=== PATIENT | female | born 2000 | race Hispanic/Latino ===

== ENCOUNTER 2023-11-10 19:04 | Emergency (ER) | payer OTHER, SELFPAY ==
[2023-11-10 19:16] VITALS: BP 122/70; PULSE 90; RESP 18; TEMP 36.4; O2SAT 99
--- NOTE | 2023-11-10 19:20 | ED.EAR ---
HPI - Ear Problem General Chief complaint: Ear Stated complaint: EAR PAIN Time Seen by Provider: 11/10/23 19:21 Source: patient, RN notes reviewed and old records reviewed Mode of arrival: ambulatory Limitations: no limitations History of Present Illness HPI Narrative: 23year old female who presents to [facility] with complaints of intermittent history for 2 weeks of right ear discomfort. Patient reports her right ear feels clogged. She denies any drainage from her ears or any spray throat fevers cough or decreased hearing. Patient reports no sinus congestion or drainage, no fevers, coughs, or any body aches MD Complaint: ear pain Location: right ear Duration: intermittent Severity: mild Discharge from ear: Reports no Treatment prior to arrival: none Related Data Allergies Allergy/AdvReac Type Severity Reaction Status Date / Time No Known Allergies Allergy Unknown Uncoded 11/10/23 19:20 Review of Systems Review of Systems: CONSTITUTIONAL: Denies malaise, chills, sweats, or fever. EYES: Denies visual changes, redness, or discharge. ENT: Reports rhinorrhea, congestion, sinus pain,positive for right otalgia and no sore throat. CARDIOVASCULAR: Denies chest pain, palpitations, or edema. RESPIRATORY: Reports no cough.? Denies dyspnea. GASTROINTESTINAL: Denies abdominal pain, nausea, vomiting, diarrhea SKIN: Denies rash or itching. MUSCULOSKELETAL: Denies myalgia. NEUROLOGIC: Denies headache. All systems reviewed & are unremarkable except as noted in HPI and below PMFSH Past Medical History Medical History (Updated 11/10/23 @ 20:12 by Janey Francois NP) Back pain Costochondritis Social History Social History (Updated 11/10/23 @ 19:37 by Janey Francois NP) Smoking status: Never smoker Alcohol intake: current Alcohol use details: Rare social Substance use type: does not use Living arrangements: with family Occupation/Education: student Gender identity (if verbalized by the patient): Female Comments At time of signature, agree with nursing past medical, surgical, social and family history. There is no relevant family history pertinent to the presenting complaint Exam Narrative: GENERAL: Well-appearing, well-nourished, and in no acute distress. HEAD: Normocephalic EYES: PERRLA, conjunctivae clear ENT: Nares clear, turbinates edematous and erythematous, clear discharge. Mucous membranes moist.Right TM red, canal red and irritated, no drainage noted, Left TM pearly salomon with dull light reflex ; no tragal tenderness. Oropharynx erythematous without lesions. Tonsils not enlarged and without exudate, no drooling, no hoarseness, no trismus, uvula midline. NECK: Supple. No lymphadenopathy CHEST: Clear to auscultation, breath sounds equal. No wheezing, rhonchi, rales, or stridor. No respiratory distress, speaks in full sentences. HEART: Regular rate and rhythm. No murmur heard. SKIN: Warm, dry, no rash. NEURO: Alert and oriented x3. PSYCH: Normal mood and affect Course Course Emergency Course: Patient is aware of diagnosis, understands and agrees to treatment plan.? Anticipatory guidance given.? Patient agrees to follow-up as directed and is aware of reasons to seek care at the emergency department. Portions of this record may have been created with voice recognition software Level of Care: Express Care Visit Vital Signs Vital signs: Vital Signs Temperature 36.4 C L 11/10/23 19:16 Pulse Rate 90 11/10/23 19:16 Respiratory Rate 18 11/10/23 19:16 Blood Pressure 122/70 11/10/23 19:16 Pulse Oximetry 99 11/10/23 19:16 Oxygen Delivery Room Air 11/10/23 19:16 Temperature 36.4 C L 11/10/23 19:16 Pulse Rate 90 11/10/23 19:16 Respiratory Rate 18 11/10/23 19:16 Blood Pressure 122/70 11/10/23 19:16 Pulse Oximetry 99 11/10/23 19:16 Oxygen Delivery Room Air 11/10/23 19:16 Reviewed Medical Decision Making Differenti
== END 2023-11-10 19:35 | disposition home or self-care (01) ==
PROVIDERS: Emergency Provider Registered Nurse; PCP Physician Assistant
DX: H60.501 Unspecified acute noninfective otitis externa, right ear (principal); H65.01 Acute serous otitis media, right ear
CPT/HCPCS: 99213; G0463